=== PATIENT | female | born 1945 | race Caucasian/White ===

== ENCOUNTER 2016-12-15 13:20 | Emergency (ER) | payer MEDICARE, BC ==
[~2016-12-15] VITALS: Ht 157.5 cm; Wt 52.0 kg
[2016-12-15 13:47] VITALS: Ht 157.5 cm; Wt 52.0 kg
[2016-12-15] MEDS ORDERED: ACETAMINOPHEN 500 MG TAB PO STA (15:13)
[2016-12-15] MEDS ORDERED: DIGO125T19 PO (15:39)
[2016-12-15] MEDS ORDERED: DONE10TA7 PO (15:40)
[2016-12-15] MEDS ORDERED: APIX2.5T PO (15:41)
[2016-12-15] MEDS ORDERED: METO-448 PO (15:41)
[2016-12-15] MEDS ORDERED: FURO20TA3 PO (15:42)
[2016-12-15] MEDS ORDERED: OMEP20CA16 PO (15:42)
[2016-12-15] MEDS ORDERED: VIT1CAPS10 PO (15:48)
[2016-12-15] MEDS ORDERED: POLY17PO6 PO (15:48)
[2016-12-15] MEDS ORDERED: MINE7OIN BOTH EYES (15:49)
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
[2016-12-15] MEDS ORDERED: ACET1TAB40 PO (16:35)
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
[2016-12-15 16:44] VITALS: BP 128/86; PULSE 87; RESP 14; TEMP 98.6
== END 2016-12-15 16:40 | disposition home or self-care (01) ==
LOC: E/R 13:20
DX: S16.1XXA Strain of muscle, fascia and tendon at neck level, initial encounter (principal); R40.2142 Coma scale, eyes open, spontaneous, at arrival to emergency department; R40.2252 Coma scale, best verbal response, oriented, at arrival to emergency department; R40.2362 Coma scale, best motor response, obeys commands, at arrival to emergency department; V49.40XA Driver injured in collision with unspecified motor vehicles in traffic accident, initial encounter
CPT/HCPCS: 72125; 72128; 72131